=== PATIENT | female | born 1975 | race Caucasian/White ===

== ENCOUNTER 2017-08-26 16:20 | Observation (INO) | payer OTHER ==
[~2017-08-26] VITALS: Ht 157.5 cm; Wt 78.9 kg
[2017-08-26] MEDS: LR 1,000 ML IV SCH (21:32)
[2017-08-27] MEDS: LR 1,000 ML IV SCH (05:32)
== END 2017-08-27 10:00 | disposition home or self-care (01) ==
LOC: SPU 16:20
PROVIDERS: ADMIT Obstetrics & Gynecology; ATTEND Obstetrics & Gynecology
DX: O41.03X0 Oligohydramnios, third trimester, not applicable or unspecified (principal); O09.523 Supervision of elderly multigravida, third trimester; Z3A.35 35 weeks gestation of pregnancy; Z85.3 Personal history of malignant neoplasm of breast
CPT/HCPCS: 76805; 96360; 96361 ×2; G0378 ×2; J7120

== ENCOUNTER 2020-02-15 16:45 | Emergency (ER) | payer MEDICAID, OTHER ==
[~2020-02-15] VITALS: Ht 157.5 cm; Wt 71.7 kg
[2020-02-15 16:50] VITALS: BP_SYST 117
--- NOTE | 2020-02-15 16:58 | NUR ---
Patient to ER bed 8 to gown for evaluation. Side rails up. Report given to SHIRLENE Lerma.
--- NOTE | 2020-02-15 17:01 | NUR ---
DR STEPHEN IN TO ASSESS
--- NOTE | 2020-02-15 17:10 | NUR ---
UP AMBULATING STEADY. CALM, ALERT, RESP UNLABORED
[2020-02-15 17:25] LABS: BASOPHILS % (AUTO) 0.3 % (0.0-2.0); EOSINOPHILS # (AUTO) 0.3 K/uL (0.0-0.4); EOSINOPHILS % (AUTO) 5.5 % (0.0-4.0); HEMATOCRIT 38.1 % (36-48); HEMOGLOBIN 13.1 g/dL (12.0-16.0); LYMPHOCYTES # (AUTO) 2.1 K/uL (1.0-5.5); MEAN CORPUSCULAR HEMOGLOBIN 31 pg (27-31); MEAN CORPUSCULAR HGB CONC 34 % (32-36); MEAN CORPUSCULAR VOLUME 90 fL (79.0-98.0); MONOCYTES # (AUTO) 0.3 K/uL (0.0-1.0); NEUTROPHILS # (AUTO) 3.2 K/uL (1.8-7.7); NEUTROPHILS % (AUTO) 53.2 % (40.0-70.0); PLATELET COUNT (AUTO) 174 K/uL (130-430); RED BLOOD CELL COUNT(AUTO) 4.23 MIL/uL (4.2-6.2); RED CELL DISTRIBUTION WIDTH 14.7 % (9.0-15.0); WHITE BLOOD COUNT (AUTO) 5.9 K/uL (4.8-10.8)
[2020-02-15] MEDS ORDERED: LORazepam 2 MG/ML VIAL IVP ONE (17:30)
--- NOTE | 2020-02-15 17:46 | NUR ---
CALM, ALERT, RESP UNLABORED, AWAITNG ULTRASOUND
--- NOTE | 2020-02-15 18:37 | NUR ---
Patient given written and verbal discharge instructions and verbalizes understanding. ER MD discussed with patient the results and treatment provided. Patient in stable condition. ID arm band removed. Rx of given. Patient educated on pain management and to follow up with PMD. Pain Scale 2/10 Opportunity for questions provided and answered. Medication side effect fact sheet provided.
[2020-02-15 18:38] VITALS: BP_SYST 118
== END 2020-02-15 18:38 | disposition home or self-care (01) ==
LOC: SED 16:45
DX: S80.12XA Contusion of left lower leg, initial encounter (principal); X58.XXXA Exposure to other specified factors, initial encounter; Y93.89 Activity, other specified; Y92.89 Other specified places as the place of occurrence of the external cause; Y99.8 Other external cause status
CPT/HCPCS: 36415; 85025; 93971; 99284